=== PATIENT | female | born 1940 | race American Indian/Alaskan Native ===

== ENCOUNTER 2017-03-15 04:10 | Inpatient (IN) | payer MEDICARE ==
[2017-03-15 04:34] LABS: Basophils % (Auto) 0.6 % (0.0-1.8); Eosinophils % (Auto) 0.1 % (0.0-4.3); Hematocrit 42.1 % (30.3-42.9); Hemoglobin 13.2 gm/dl (10.1-14.3); Mean Corpuscular HGB Conc 31 % (30-34); Red Blood Count 6.34 M/mm3 (3.65-5.03); Red Cell Distribution Width 16.5 % (13.2-15.2); White Blood Count 16.2 K/mm3 (4.5-11.0)
--- NOTE | 2017-03-15 04:34 | Cat Scan Report ---
FINAL REPORT PROCEDURE: CT HEAD/BRAIN WO CON TECHNIQUE: Computerized tomography of the head was performed without contrast material. HISTORY: neuro deficits \T\lt; 6hrs or sx present upon awakening COMPARISON: No prior studies are available for comparison. FINDINGS: Skull and scalp: Normal. Paranasal sinuses: Normal. Ventricles and subarachnoid spaces: Normal. Cerebrum: There is no evidence of acute intracranial hemorrhage, hematoma, infarction, midline displacement or mass. Mild atrophy and periventricular deep white matter changes. Old lacunar infarctions of the basal ganglia are noted bilaterally.. Cerebellum and brainstem: No evidence of hemorrhage, acute infarction or mass. Vasculature: Normal. Comments: None. IMPRESSION: There is no evidence of an acute intracranial process. Mild atrophy and periventricular deep white matter changes. Old lacunar infarctions of both basal ganglia.
[2017-03-15 04:35] LABS: Mean Corpuscular Volume 66 fl (79-97)
[2017-03-15 04:36] LABS: Mean Corpuscular Hemoglobin 21 pg (28-32)
[2017-03-15 04:38] LABS: Platelet Count 206 K/mm3 (140-440)
[2017-03-15 04:43] LABS: Partial Thromboplastin Time 28.2 Sec. (24.2-36.6)
[2017-03-15 04:49] LABS: Anion Gap 21 mmol/L; BUN/Creatinine Ratio 31.25; Blood Urea Nitrogen 25 mg/dL (7-17); Calcium 8.8 mg/dL (8.4-10.2); Carbon Dioxide 26 mmol/L (22-30); Chloride 94.2 mmol/L (98-107); Glucose 192 mg/dL (65-100); Sodium 137 mmol/L (137-145)
--- NOTE | 2017-03-15 05:20 | Emergency Department Report ---
Blank Doc - Documentation Documentation: Patient presented to the ED with possible stroke alert. Apparently daughter heard a thump and when she checked on the patient she was not able to stand. EMS reports left facial droop that has improved since arrival. Patient examined by me for possible stroke alert. Patient does not have any focality at this time. Smile symmetrical, extraocular movements intact, sensation grossly intact to bilateral upper and lower extremities. No signs of arm weakness/ drift. 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 Dorsiflexion of foot equal b/ l however, patient cannot sustain antigravity movement with either lower extremity. Patient passed a swallow screen. There significant language barrier. When was lies not available. Daughter is not present.. Patient went to CAT scan and neurology was consulted via telephone. CT head was negative.
[2017-03-15] MEDS ORDERED: NACL 0.9% 1000 ML 1,000 ML IV ONE ×2 (06:19→07:30)
[2017-03-15] MEDS ORDERED: LEVAQUIN 750MG/150ML 750 MG/150 ML BAG IV ONE (06:19)
[2017-03-15] MEDS ORDERED: TYLENOL ONE (06:34)
--- NOTE | 2017-03-15 06:39 | Emergency Department Report ---
ED General Adult HPI - General Chief complaint: Neuro Symptoms/Deficit Stated complaint: CVA Time Seen by Provider: 03/15/17 06:09 Source: EMS Mode of arrival: Ambulatory Limitations: No Limitations - History of Present Illness Initial comments: 76 years old [place] female brought by EMS as a possible cord a stroke. The patient was examined initially by previous provider does not look like a TPA candidate no focalities. Patient daughter in the room now and she was able to give more history, per daughter reports patient is being having generalized weakness for the last 3 days sleeping all the time but denied any focal neurological deficit no focal weakness or numbness or tingling sensation no issues with speech. She stated that this morning she fell while she was trying to get of her bed. She also mentioned that she's been having trouble controlling her bladder for the last 3 days. Denied any fever no nausea no vomiting. -: days(s) (3 days ago) Severity scale (0 -10): 0 - Related Data Allergies Allergy/AdvReac Type Severity Reaction Status Date / Time No Known Allergies Allergy Verified 03/15/17 06:33 ED Review of Systems ROS: Stated complaint: CVA Other details as noted in HPI Comment: All other systems reviewed and negative Constitutional: denies: chills, fever ENT: denies: ear pain Respiratory: denies: cough, orthopnea, shortness of breath, SOB with exertion, SOB at rest Cardiovascular: palpitations. denies: chest pain, dyspnea on exertion Gastrointestinal: abdominal pain. denies: nausea, vomiting, diarrhea Musculoskeletal: denies: back pain Skin: denies: rash, lesions Neurological: weakness (generalized). denies: headache ED Past Medical Hx - Past Medical History Previous Medical History?: Yes Hx CVA: Yes (2016) - Social History Smoking Status: Unknown if ever smoked ED Physical Exam - General Limitations: No Limitations General appearance: alert, in no apparent distress - Head Head exam: Present: atraumatic, normocephalic - Eye Eye exam: Present: normal appearance, PERRL - ENT ENT exam: Present: normal exam, normal orophraynx, mucous membranes moist - Neck Neck exam: Present: normal inspection - Respiratory Respiratory exam: Present: normal lung sounds bilaterally. Absent: respiratory distress, wheezes, rales, rhonchi - Cardiovascular Cardiovascular Exam: Present: tachycardia - GI/Abdominal GI/Abdominal exam: Present: soft. Absent: distended, tenderness, guarding, rebound - Extremities Exam Extremities exam: Present: normal inspection - Back Exam Back exam: Present: normal inspection, full ROM. Absent: CVA tenderness (R), CVA tenderness (L) - Neurological Exam Neurological exam: Present: alert, oriented X3, CN II-XII intact, normal gait. Absent: abnormal gait, motor sensory deficit - Skin Skin exam: Present: warm, intact, normal color ED Course Vital Signs 03/15/17 03/15/17 03/15/17 04:36 05:01 05:13 Temperature Pulse Rate 115 H 112 H Respiratory 16 29 H 12 Rate Blood Pressure 162/83 Blood Pressure [Left] O2 Sat by Pulse 96 95 97 Oximetry 03/15/17 03/15/17 05:16 06:43 Temperature 98 F 102 F H Pulse Rate 109 H 76 Respiratory 12 12 Rate Blood Pressure Blood Pressure 162/83 147/71 [Left] O2 Sat by Pulse 97 Oximetry - Reevaluation(s) Reevaluation #1: 03/15/17 07:33 Patient found to have a fever over 102.8. Tylenol was given. Reevaluation #2: 03/15/17 08:[address] Morelos. I presented the patient to him, he agreed to admit the patient to his service. ED Medical Decision Making - Lab Data Result diagrams: 03/15/17 04:10 03/15/17 04:10 Critical care attestation.: If time is entered above; I have spent that time in minutes in the direct care of this critically ill patient, excluding procedure time. ED Disposition Clinical Impression: Pneumonia, UTI (urinary tract infection), Fever, Weakness Disposition: OP ADMIT IP TO THIS HOSP Is pt being admited?: Yes Condition: Stable Instructions: Bacterial Pneumonia (ED) Referrals: PRIMARY CARE, [Primary Care Provider] - 3-5 Days
[2017-03-15] MEDS ORDERED: TYLENOL PO ONE (06:42)
[2017-03-15 06:51] LABS: Bilirubin,Urine NEG (Negative); Blood,Urine MOD (Negative); Ketones,Urine NEG (Negative); Leukocyte Esterase,Urine NEG (Negative); Nitrite,Urine POS (Negative); Urobilinogen,Urine < 2.0 mg/dL (<2.0)
[2017-03-15] MEDS ORDERED: VANCOMYCIN VIAL IV ONE (08:55)
[2017-03-15] MEDS ORDERED: NACL 0.9% 1000 ML IV ONE ×3 (08:55→22:00)
[2017-03-15] MEDS ORDERED: VANCOMYCIN PHARMACY TO DOSE IV SCH (09:00)
[2017-03-15] MEDS ORDERED: SODIUM CHLORIDE FLUSH SYRINGE 10 ML IV PRN (09:01)
[2017-03-15] MEDS ORDERED: D50W (25GM) Syringe IV PRN (09:03)
--- NOTE | 2017-03-15 09:07 | History and Physical Report ---
History of Present Illness Date of examination: 03/15/17 Date of admission: 03/15/17 Chief complaint: Generalized weakness and facial drop History of present illness: Patient is a 76 years old [place] female with hx of HTN, Dm, prior stroke about a year ago, who presents to the hospital with complaints of weakness, unsteady gait and according to the daughter who presented most of the information reported a fall and EMS noted left facial droop. Patient on arrival to the ER with evaluation did not have any focality also was determined not a TPA candidate. Symptom has been ongoing, for about 3 days. Patient in the ER was noted to have focal pneumonia and also with UTI And a Temperature of 102. Constitutional: Positive fever, fatigue but no weight loss. Reported generalized weakness Skin: No rash. Eyes: No recent vision problems or eye pain. ENT: Facial droop. ENT. No congestion, ear pain, or sore throat. Endocrine: No thyroid problems. Cardiovascular: No chest pain. Respiratory: No cough, shortness of breath, congestion, or wheezing. Gastrointestinal: No abdominal pain, nausea, vomiting, or diarrhea. Genitourinary: No dysuria. Musculoskeletal: No joint swelling. Neurologic: Noted facial droop and ENT. No seizures. Hematologic: No unusual bruising or bleeding. Psychiatric: No psychiatric problems, hallucinations or depression. All other systems reviewed and otherwise negative. Past History Past Medical History: diabetes, hypertension, stroke Past Surgical History: No surgical history Social history: , lives with family, full code. denies: smoking Family history: no significant family history Medications and Allergies Allergies Allergy/AdvReac Type Severity Reaction Status Date / Time No Known Allergies Allergy Verified 03/15/17 06:33 Active Meds: Active Medications Dextrose (D50w (25gm) Syringe) 50 ml IV PRN PRN PRN Reason: Hypoglycemia Heparin Sodium (Porcine) (Heparin) 5,000 unit SUB-Q Q8HR RAJINDER Piperacillin Sod/Tazobactam Sod (Zosyn/Ns 4.5gm/100ml) 4.5 gm in 100 mls @ 200 mls/hr IV Q8HR RAJINDER PRN Reason: Protocol Insulin Aspart (Novolog) 0 units SUB-Q ACHS RAJINDER PRN Reason: Protocol Insulin Detemir (Levemir) 12 units SUB-Q QHS RAJINDER Simvastatin (Zocor) 20 mg PO QHS RAJINDER Sodium Chloride (Nacl 0.9% 1000 Ml) 2,180 ml 30 ml/kg (2180 ml) IV ONCE ONE Stop: 03/15/17 08:56 Sodium Chloride (Sodium Chloride Flush Syringe 10 Ml) 10 ml INJ PRN PRN PRN Reason: LINE FLUSH Vancomycin HCl (Vancomycin Pharmacy To Dose) 1 each IV PKCONSULT RAJINDER PRN Reason: Protocol Vancomycin HCl (Vancomycin Vial) 1,500 mg 20 mg/kg (1500 mg) IV ONCE ONE PRN Reason: Protocol Stop: 03/15/17 08:56 Exam - Physical Exam Narrative exam: VITAL SIGNS: Reviewed. GENERAL: The patient appeared well nourished and normally developed. Vital signs as documented. HEAD: No signs of head trauma. EYES: Pupils are equal. Extraocular motions intact. EARS: Hearing grossly intact. MOUTH: Oropharynx is normal. NECK: No adenopathy, no JVD. CHEST: Chest with clear breath sounds bilaterally. No wheezes, rales, or rhonchi. CARDIAC: Regular rate and rhythm. S1 and S2, without murmurs, gallops, or rubs. VASCULAR: No Edema. Peripheral pulses normal and equal in all extremities. ABDOMEN: Soft, without detectable tenderness. No sign of distention. No rebound or guarding, and no masses palpated. Bowel Sounds normal. MUSCULOSKELETAL: Good range of motion of all major joints. Extremities without clubbing, cyanosis or edema. NEUROLOGIC EXAM: Lethargic but awake and oriented x 3. No focal sensory or strength deficits. Speech normal. Follows commands. PSYCHIATRIC: Mood normal. SKIN: No rash or lesions. - Constitutional Vitals: Temp Pulse Resp BP Pulse Ox 102 F H 76 12 147/71 97 03/15/17 06:43 03/15/17 06:43 03/15/17 06:43 03/15/17 06:43 03/15/17 05:16 Results - Labs CBC & Chem 7: 03/15/17 04:10 03/15/17 04:10 Labs: Laboratory Last Values WBC 16.2 K/mm3 (4.5-11.0) H 03/15/17 04:10 RBC 6.34 M/mm3 (3.65-5.03) H 03/15/17 04:10 Hgb 13.2 gm/dl (10.1-14.3) 03/15/17 04:10 Hct 42.1 % (30.3-42.9) 03/15/17 04:10 MCV 66 fl (79-97) L 03/15/17 04:10 MCH 21 pg (28-32) L 03/15/17 04:10 MCHC 31 % (30-34) 03/15/17 04:10 RDW 16.5 % (13.2-15.2) H 03/15/17 04:10 Plt Count 206 K/mm3 (140-440) 03/15/17 04:10 Lymph % (Auto) 10.1 % (13.4-35.0) L 03/15/17 04:10 [place] % (Auto) 6.8 % (0.0-7.3) 03/15/17 04:10 Eos % (Auto) 0.1 % (0.0-4.3) 03/15/17 04:10 Baso % (Auto) 0.6 % (0.0-1.8) 03/15/17 04:10 Lymph # 1.6 K/mm3 (1.2-5.4) 03/15/17 04:10 [place] # 1.1 K/mm3 (0.0-0.8) H 03/15/17 04:10 Eos # 0.0 K/mm3 (0.0-0.4) 03/15/17 04:10 Baso # 0.1 K/mm3 (0.0-0.1) 03/15/17 04:10 Seg Neutrophils % 82.4 % (40.0-70.0) H 03/15/17 04:10 Seg Neutrophils # 13.4 K/mm3 (1.8-7.7) H 03/15/17 04:10 PT 13.1 Sec. (12.2-14.9) 03/15/17 04:10 INR 1.00 (0.87-1.13) 03/15/17 04:10 APTT 28.2 Sec. (24.2-36.6) 03/15/17 04:10 Thrombin Time 15.0 Sec. (15.1-19.6) L 03/15/17 04:10 Sodium 137 mmol/L (137-145) 03/15/17 04:10 Potassium 4.0 mmol/L (3.6-5.0) 03/15/17 04:10 Chloride 94.2 mmol/L (98-107) L 03/15/17 04:10 Carbon Dioxide 26 mmol/L (22-30) 03/15/17 04:10 Anion Gap 21 mmol/L 03/15/17 04:10 BUN 25 mg/dL (7-17) H 03/15/17 04:10 Creatinine 0.8 mg/dL (0.7-1.2) 03/15/17 04:10 Estimated GFR > 60 ml/min 03/15/17 04:10 BUN/Creatinine Ratio 31.25 % 03/15/17 04:10 Glucose 192 mg/dL (65-100) H 03/15/17 04:10 Lactic Acid 2.20 mmol/L (0.7-2.0) H* 03/15/17 06:31 Calcium 8.8 mg/dL (8.4-10.2) 03/15/17 04:10 Troponin T < 0.010 ng/mL (0.00-0.029) 03/15/17 04:10 Urine Color Yellow (Yellow) 03/15/17 06:30 Urine Turbidity Slightly-cloudy (Clear) 03/15/17 06:30 Urine pH 6.0 (5.0-7.0) 03/15/17 06:30 Ur Specific [place] 1.011 (1.003-1.030) 03/15/17 06:30 Urine Protein 30 mg/dl mg/dL (Negative) 03/15/17 06:30 Urine Glucose (UA) 150 mg/dL (Negative) 03/15/17 06:30 Urine Ketones Neg mg/dL (Negative) 03/15/17 06:30 Urine Blood Mod (Negative) 03/15/17 06:30 Urine Nitrite Pos (Negative) 03/15/17 06:30 Urine Bilirubin Neg (Negative) 03/15/17 06:30 Urine Urobilinogen < 2.0 mg/dL (<2.0) 03/15/17 06:30 Ur Leukocyte Esterase Neg (Negative) 03/15/17 06:30 Urine WBC (Auto) 9.0 /HPF (0.0-6.0) H 03/15/17 06:30 Urine RBC (Auto) 5.0 /HPF (0.0-6.0) 03/15/17 06:30 U Epithel Cells (Auto) < 1.0 /HPF (0-13.0) 03/15/17 06:30 - Imaging and Cardiology Chest x-ray: image reviewed (left lobar pneumonia) Assessment and Plan Assessment and plan: Patient is a 76 years old [place] female with hx of HTN, Dm, prior stroke about a year ago, who presents to the hospital with complaints of weakness, unsteady gait and according to the daughter who presented most of the information reported a fall and EMS noted left facial droop. Patient on arrival to the ER with evaluation did not have any focality also was determined not a TPA candidate. Symptom has been ongoing, for about 3 days. Patient in the ER was noted to have focal pneumonia and also with UTI And a Temperature of 102. Sepsis * Present on admission with evidence of tachycardia, fever, elevated WBC chest x -ray evidence of pneumonia with the urinalysis also showing UTI. Was not on sepsis protocol. Was not on empiric antibiotics Zosyn and vancomycin. Urine cultures and blood cultures. Severe Sepsis * Repeat lactate level Pneumonia * Empiric antibiotics as noted above Acute cystitis * Urine culture on empiric antibiotic coverage as noted above TIA * EMS evidence of facial droop noted at this time. We'll obtain MRI. CT brain reviewed and negative. Was not on aspirin in a.m. Allow some elevated blood pressure but control to the less than 180 systolic. * Patient has a prior history of stroke. Diabetes mellitus * Insulin sliding scale coverage with Accu-Cheks and basal insulin units at nighttime HTN * Permissive hypertension in the first 24 hours and manage appropriately. DVT and GI prophylaxis as noted. Plan of care discussed with family. Daughter will bring all home medications Advance Directives: Yes Plan of care discussed with patient/family: Yes
[2017-03-15] MEDS ORDERED: VANCOMYCIN 1,500 MG in NACL 0.9% 500 ML 500 ML IV ONE (09:15)
--- NOTE | 2017-03-15 09:27 | XRay Report ---
Single view chest: History: Chest pain. Findings: Cardiomegaly. Trachea is midline. Pulmonary venous congestion bilaterally being more pronounced lower lobes. Normal CP angles. Impression: Probable CHF.
[2017-03-15] MEDS ORDERED: ZOSYN/NS 4.5GM/100ML 4.5 GM/100 ML VIAL IV ONE ×2 (10:37→10:52)
[2017-03-15] MEDS: ZOSYN/NS 4.5GM/100ML 4.5 GM/100 ML VIAL IV SCH ×3 (11:35→22:04)
[2017-03-15] MEDS ORDERED: NOVOLOG SUB-Q ONE ×2 (11:53→11:55)
[2017-03-15] MEDS: NOVOLOG SUB-Q SCH ×3 (11:56→22:13)
--- NOTE | 2017-03-15 12:53 | Magnetic Resonance Report ---
MRI scan of brain: History: CVA. Technique: Multi-plantar, multisequence images were obtained without contrast injection. Findings: No evidence of restricted diffusion. Ventricles are normal in size and midline in location. Chronic small lacunar infarct right and left basal ganglia. No evidence of acute ischemia, hemorrhage or mass. No extra-axial fluid collection. Periventricular and subcortical areas of hyperintensity without restricted diffusion. Normal brainstem and cerebellum. Impression: No acute intracranial abnormality. Chronic lacunar infarct right and left basal ganglia. Small vessel ischemic changes bilaterally.
[2017-03-15] MEDS: HEPARIN SUB-Q SCH ×2 (18:52→22:04)
[2017-03-15] MEDS ORDERED: LEVEMIR SUB-Q SCH (22:00)
[2017-03-15] MEDS: ZOCOR PO SCH (22:03)
[2017-03-15] MEDS: LEVEMIR SUB-Q SCH (22:08)
[2017-03-16 05:51] LABS: Mean Corpuscular HGB Conc 30 % (30-34); Platelet Count 175 K/mm3 (140-440); Red Blood Count 5.49 M/mm3 (3.65-5.03); White Blood Count 9.1 K/mm3 (4.5-11.0)
[2017-03-16 05:58] LABS: Anion Gap 17 mmol/L; BUN/Creatinine Ratio 21.66; Blood Urea Nitrogen 13 mg/dL (7-17); Carbon Dioxide 23 mmol/L (22-30); Chloride 105.7 mmol/L (98-107); Glucose 91 mg/dL (65-100); Potassium 3.4 mmol/L (3.6-5.0); Sodium 142 mmol/L (137-145)
[2017-03-16] MEDS: HEPARIN SUB-Q SCH ×3 (06:07→21:48)
[2017-03-16] MEDS: ZOSYN/NS 4.5GM/100ML 4.5 GM/100 ML VIAL IV SCH ×3 (06:07→21:46)
[2017-03-16 06:32] LABS: Hematocrit 36.5 % (30.3-42.9); Hemoglobin 10.9 gm/dl (10.1-14.3)
[2017-03-16 06:33] LABS: Mean Corpuscular Hemoglobin 20 pg (28-32); Mean Corpuscular Volume 67 fl (79-97)
--- NOTE | 2017-03-16 07:24 | Admit Criteria Form ---
Admission Criteria Documentation: SEVERE SEPSIS Clinical Indications for Admission to Inpatient Care (Place 'X' for any and all applicable criteria): Hospital admission is needed for appropriate care of the patient because of ANY ONE of the following: [X]I. Hemodynamic instability indicated by ANY ONE of the following(1)(2)(3)( 4)(5): [X]a. Vital sign abnormality not readily corrected by appropriate treatment within 12 to 24 hours indicated by ANY ONE of the following: [X]i) Tachycardia that persists despite appropriate treatment []ii) Hypotension that persists despite appropriate treatment []iii) Orthostatic vital sign changes that persist despite appropriate treatment [X]b. Vital sign abnormality that is severe indicated by ANY ONE of the following: [X]i. Inadequate perfusion indicated by ANY ONE of the following: [X]1) Lactic acidosis (greater than 2 mmol/L) []2) New abnormal capillary refill (greater than 3 seconds) []3) Reduced urine output []4) New altered mental status []5) Myocardial Ischemia []ii. Mean arterial pressure [A] less than 60 mm Hg []iii. Mean arterial pressure[A] less than 70 mm Hg after 30 minutes of appropriate treatment (eg, fluid resuscitation) []iv. Sustained heart rate greater than 120 beats per minute in adult []v. IV inotropic or vasopressor medication required to maintain adequate blood pressure or perfusion []II. Systemic or infectious condition causing severe symptoms or findings not responsive to emergency or observation care treatment (as appropriate) indicated by ANY ONE of the following: []a. Cardiac arrhythmias of immediate concern(1)(2)(3) []b. Severe endocrine disorder (eg, thyrotoxicosis, adrenal insufficiency)(4)(5) []c. Seizures (eg, new or recurrent)(6) []d. New-onset end organ failure or dysfunction as indicated by ANY ONE of the following: []i. Acute unexplained hypoxemia (eg, not from lung infection or chronic disease)(7)(8)(9) []ii. Acute renal failure as indicated by new onset of ANY ONE of the following(10)(11)(12)(13)(14): []1) 3-fold rise in serum creatinine from baseline []2) Serum creatinine greater than 4 mg/dL (354 micromoles/L) with acute rise greater than 0.5 mg/dL (44.2 micromoles/L) []3) Reduction of more than 75% in estimated glomerular filtration rate from baseline. []4) Estimated glomerular filtration rate less than 35 mL/min/1.73m2 ( 0.59 mL/sec/1.73m2) in child younger than 18 years. []5) Cessation of urine output indicated by ALL of the following: []A. Adequate volume status []B. Inadequate urine output as indicated by ANY ONE of the following: []a. Urine output less than 0.3 mL/kg/hr for 24 hours []b. Anuria (urine output less than 0.1 mL/kg/hr) for 12 hours []iii. Acute mental status changes(15) []iv. Acute hepatic failure (eg, plasma bilirubin greater than 4 mg/ dL (68 micromoles/L), new INR greater than 2.0)(16)(17) []e. Unmanageable nausea and vomiting(18) []f. New-onset or uncontrolled central diabetes insipidus(19)(20) []g. Clinically significant dehydration(18)(21) []h. Hypoglycemia(22) []i. Acidosis (pH less than 7.35) or alkalosis (pH greater than 7.45)( 22)(23) []j. Toxic drug level that indicates need for specific monitoring or treatment(24)(25) []k. Severe electrolyte abnormalities indicated by ALL of the following( 1)(2)(3): []i. Electrolytes and associated findings are not as expected for patient baseline or acceptable treatment effects. []ii. Severe abnormalities indicated by ANY ONE of the following: []1) Sodium less than 130 mEq/L (mmol/L) (new) []2) Sodium less than 135 mEq/L (mmol/L) with ANY ONE of the following: []A. Uncorrectable (to near normal or chronic baseline) after trial of outpatient and emergency treatment []B. Altered mental status []C. Seizures []D. Severe medical etiology requiring inpatient management (eg , heart failure, hypovolemia) []3) Sodium greater than 155 mEq/L (mmol/L) []4) Sodium greater than 150 mEq/L (mmol/L) with ANY ONE of the following: []A. Uncorrectable (to near normal or chronic baseline) with outpatient and emergency treatment []B. Altered mental status []C. Seizures []D. Severe medical etiology (eg, hypovolemia, diabetes insipidus) []5) Potassium less than 2.5 mEq/L (mmol/L) despite outpatient and emergency treatment []6) Potassium less than 3 mEq/L (mmol/L) with ANY ONE of the following : []A. Weakness []B. Cardiac abnormality (eg, arrhythmia, conduction disturbance ) []C. Cardiac ischemia []D. Ileus []E. Ongoing medical cause requiring inpatient management (eg, acute renal wasting or SIADH) []F. Other severe symptoms []7) Potassium greater than 6.5 mEq/L (mmol/L) []8) Potassium greater than 5 mEq/L (mmol/L) with ANY ONE of the following: []A. Uncorrectable (to near normal or chronic baseline) with outpatient and emergency treatment []B. Severe ECG findings[A] []C. Acute worsening of renal failure (creatinine greater than 2.5 mg/dL (221 micromoles/L) or significant elevation for age and size) []D. Severe weakness []E. Severe medical etiology (eg, hemolysis, infection, drug overdose) []9) Calcium less than 7 mg/dL (1.75 mmol/L) despite outpatient and emergency treatment(5) []10) Calcium less than 8 mg/dL (2 mmol/L) with significant symptoms or findings (eg, altered mental status, muscle spasms, seizures, breathing difficulty, cardiac abnormality (eg, arrhythmia or conduction disturbance))(5) []11) Calcium greater than 14 mg/dL (3.5 mmol/L)(5) []12) Calcium greater than 12 mg/dL (3 mmol/L) with ANY ONE of the following(5): []A. Uncorrectable (to near normal or chronic baseline) with outpatient and emergency treatment []B. Significant dehydration or hypovolemia as indicated by ALL of the following(3)(6)(7): []a. Not resolved with initial treatments []b. Clinically significant dehydration as indicated by ANY ONE of the following: [](1) Vomiting refractory to outpatient treatment (ie, precluding oral rehydration) [](2) Inability to drink [](3) Hypernatremia or other electrolyte abnormality unable to be corrected with outpatient and emergency treatment [](4) Failure to remain hydrated with outpatient therapy [](5) Reduced urine output [](6) Hypotension [](7) Serious cause for dehydration requiring acute hospitalization ( eg, bowel obstruction, increased intracranial pressure, infectious cause) [](8) Child with ANY ONE of the following(8): [](i) Severe abdominal tenderness [](ii) Adequate care not available at home [](iii) Severe dehydration (greater than 9% loss of body weight) []C. Significant symptoms or findings (eg, altered mental status , cardiac abnormality (eg, arrhythmia, conduction disturbance), malignant etiology requiring inpatient treatment) []13) Phosphorus less than 1 mg/dL (0.32 mmol/L) []14) Phosphorus less than 1.5 mg/dL (0.48 mmol/L) with ANY ONE of the following: []A. Patient unresponsive to outpatient and emergency treatment []B. Significant symptoms or findings (eg, weakness, altered mental status, breathing difficulty, seizures, rhabdomyolysis) []15) Phosphorus greater than 10 mg/dL (3.2 mmol/L) []16) Phosphorus greater than 4.5 mg/dL (1.45 mmol/L) (new) with ANY ONE of the following: []A. Severe medical etiology (eg, crush injury, acute renal failure) []B. Associated hypocalcemia with significant findings (eg, neurologic symptoms, altered mental status, muscle spasms, seizures, breathing difficulty, cardiac abnormality (eg, arrhythmia, conduction disturbance)) []16) Magnesium less than 1 mg/dL (0.41 mmol/L) []17) Magnesium less than 1.5 mg/dL (0.62 mmol/L) with ANY ONE of the following: []A. Patient unresponsive to outpatient and emergency treatment []B. Associated hypocalcemia with significant findings (eg, altered mental status, muscle spasms, seizures, breathing difficulty, cardiac abnormality (eg, arrhythmia, conduction disturbance)) []C. Associated hypokalemia (potassium less than 3 mEq/L (mmol/L )) with risk of arrhythmia []18) Magnesium greater than 4 mEq/L (2 mmol/L) []19) Magnesium greater than 2.5 mEq/L (1.25 mmol/L) with significant symptoms or findings (eg, weakness, altered mental status, cardiac abnormality (eg, arrhythmia, conduction disturbance), breathing difficulty, severe medical etiology (eg, renal failure, hypovolemia)) []20) Uric acid greater than 20 mg/dL (1190 micromoles/L)(9) []21) Uric acid greater than 8 mg/dL (476 micromoles/L) with significant symptoms or findings of tumor lysis syndrome (eg, creatinine greater than 1.5 times upper limit of normal, cardiac abnormality (eg , arrhythmia, conduction disturbance), seizure)(9) []III. High fever or other high-risk infection situation as indicated by ANY ONE of the following(26)(27)(28): []a. Outpatient and observation care antimicrobial treatment unavailable, not effective, or not appropriate []b. Documented bacteremia []c. Temperature greater than 104.9 degrees F (40.5 degrees C) (oral) []d. Temperature greater than 103.1 degrees F (39.5 degrees C) (oral) or less than 96.8 degrees F (36 degrees C) (rectal) that does not respond to emergency treatment and observation care []IV. High-risk febrile neutropenia[A] as indicated by ANY ONE of the following(29)(30)(31)(32): []a. Profound neutropenia[B] anticipated to extend for more than 7 days []b. Hemodynamic instability []c. Hypoxemia []d. Tachypnea []e. Altered mental status []f. New-onset abdominal pain []g. New-onset vomiting or diarrhea []h. Oral or gastrointestinal mucositis that interferes with swallowing or causes severe diarrhea []i. Focal infection (eg, cellulitis, pneumonia, central line or catheter infection, perirectal abscess) []j. Renal insufficiency (eg, GFR of less than 30 mL/min/1.73m2 (0.5 mL/sec /1.73m2)). []k. Severe liver dysfunction (transaminase levels greater than 5 times normal) []l. Platelet count less than 50,000/mm3 (50 x109/L)(33) []m. Leukemia or lymphoma induction therapy []n. Leukemia not in complete remission or with evidence of disease progression []o. Bone marrow transplant patient []p. Alemtuzumab being used for therapy []q. [employer] Association for Supportive Care in Cancer (MASCC) Risk Index score of less than 21[C](33)(35). []V. Isolation required (eg, tuberculosis that requires isolation, Ebola infection)[D](36)(37)(38)(39)(40) []. Gangrene that requires treatment beyond emergency or observation level care(41)(42) []VII. Antitoxin administration and ongoing observation required (eg, tetanus, botulism)(43)(44) []. Suspected infection with rapid progression or severe symptoms as indicated by ANY ONE of the following(45): []a. Streptococcal or staphylococcal toxic shock(46) []b. Diphtheria(47) []c. Hantavirus(48) []d. Severe acute respiratory syndrome(8)(49) []e. Anthrax(50) []f. Ebola[D](36)(37)(38) []g. Necrotizing soft tissue infection(41)(42) []h. Plague(50) []i. Other suspected infection that requires care beyond emergency or observation level care []VII. Severe adverse drug or systemic toxin reaction as indicated by ANY ONE of the following(24): []a. Serotonin syndrome(51)(52) []b. Neuroleptic malignant syndrome(51)(52) []c. Cholinergic syndrome with severe symptoms (eg, bronchorrhea, weakness , mental status changes, seizures)(53) []d. Anticholinergic syndrome []e. Sympathetic syndrome with severe symptoms (eg, seizures, mental status changes, cardiac dysrhythmias) []f. Other severe adverse drug or systemic toxin reaction that remains after emergency or observation level care (as appropriate) []VIII. Allergic reaction with severe symptoms (not responsive to emergency or observation care treatment as appropriate), including ANY ONE of the following(54): []a. Airway edema (pharyngeal, epiglottic, or laryngeal edema) []b. Stridor []c. Respiratory failure []d. Bronchospasm []e. Hypotension []IX. Environmental emergency (not responsive to emergency or observation care treatment as appropriate) as indicated by ANY ONE of the following(55)(56): []a. Hyperthermia []b. Heat stroke []c. Heat exhaustion []d. Hypothermia (temperature less than 95 degrees F (35 degrees C) rectal) (57) []e. Electrocution(58) []X. Complications of transplanted organ (ie, not covered elsewhere)[E] indicated by ANY ONE of the following(59): []a. Acute graft rejection (or graft vs. host disease)[F] requiring inpatient management (eg, intravenous immunosuppression)(60)(61)(62)( 63) []b. Acute failure of transplanted organ necessitating inpatient care (eg, cannot be managed in other setting) []c. Infection requiring inpatient management (eg, Hemodynamic instability, need for intravenous antimicrobial treatment)(64)(65) []d. Other complication of transplanted organ requiring inpatient management []XI. Systemic or Infectious Condition condition, symptom, or finding for which emergency and observation care have failed or are not considered appropriate. See General Criteria: Observation Care, General Admission Criteria or Pediatric General Admission Criteria guideline as appropriate. (Contents from SEVERE SEPSIS and SYSTEMIC OR INFECTIOUS CONDITION clinical indications for admission to inpatient care have been integrated in this form) The original [facility] content created by [facility] has been revised. The portions of the content which have been revised are identified through the use of italic text or in bold and [facility] has neither reviewed nor approved the modified material. All other unmodified content is copyright [facility]. Please see references footnoted in the original [facility] edition 2016 Admission Criteria Met: Yes
--- NOTE | 2017-03-16 08:23 | Progress Note ---
Assessment and Plan Assessment and plan: Patient is a 76 years old [place]ian female with hx of HTN, Dm, prior stroke about a year ago, who presents to the hospital with complaints of weakness, unsteady gait and according to the daughter who presented most of the information reported a fall and EMS noted left facial droop. Patient on arrival to the ER with evaluation did not have any focality also was determined not a TPA candidate. Symptom has been ongoing, for about 3 days. Patient in the ER was noted to have focal pneumonia and also with UTI And a Temperature of 102. Sepsis * Present on admission with evidence of tachycardia, fever, elevated WBC chest x -ray evidence of pneumonia with the urinalysis also showing UTI. Was not on sepsis protocol. Continue empiric antibiotics Zosyn and vancomycin. Urine cultures and blood cultures. * Follow cultures, no growth till date Severe Sepsis * Repeat lactate level Pneumonia * Possible GNR * Empiric antibiotics as noted above Acute cystitis * Urine culture on empiric antibiotic coverage as noted above TIA * EMS evidence of facial droop noted at this time. Not present at this time. MRI was negative except for noted chronic lacunar infarct CT brain reviewed and negative. We'll start on aspirin daily. Control blood pressure today.. * Patient has a prior history of stroke. Diabetes mellitus * Insulin sliding scale coverage with Accu-Cheks and basal insulin units at nighttime HTN * Permissive hypertension in the first 24 hours and manage appropriately. * Start on Norvasc till we get home meds. Requested again. Hypokalemia * Replace Constipation * lactulose PRN DVT and GI prophylaxis as noted. Plan of care discussed with family. Discussed with Nursing staff plan of care. Daughter will bring all home medications History Interval history: Patient seen and examined this morning reports improvement no fever noted but still generalized weakness. Hospitalist Physical - Physical exam Narrative exam: VITAL SIGNS: Reviewed. GENERAL: The patient appeared well nourished and normally developed. Vital signs as documented. HEAD: No signs of head trauma. EYES: Pupils are equal. Extraocular motions intact. EARS: Hearing grossly intact. MOUTH: Oropharynx is normal. NECK: No adenopathy, no JVD. CHEST: Chest with clear breath sounds bilaterally. No wheezes, rales, or rhonchi. CARDIAC: Regular rate and rhythm. S1 and S2, without murmurs, gallops, or rubs. VASCULAR: No Edema. Peripheral pulses normal and equal in all extremities. ABDOMEN: Soft, without detectable tenderness. No sign of distention. No rebound or guarding, and no masses palpated. Bowel Sounds normal. MUSCULOSKELETAL: Good range of motion of all major joints. Extremities without clubbing, cyanosis or edema. NEUROLOGIC EXAM: improving but still with some lethargy but awake and oriented x 3. No focal sensory or strength deficits. Speech normal. Follows commands. PSYCHIATRIC: Mood normal. SKIN: No rash or lesions. - Constitutional Vitals: Temp Pulse Resp BP Pulse Ox 99.3 F 77 18 162/72 95 03/16/17 07:50 03/16/17 07:50 03/16/17 07:50 03/16/17 07:50 03/16/17 07:50 Results - Labs CBC & Chem 7: 03/16/17 04:36 03/16/17 04:36 Labs: Laboratory Last Values WBC 9.1 K/mm3 (4.5-11.0) 03/16/17 04:36 RBC 5.49 M/mm3 (3.65-5.03) H 03/16/17 04:36 Hgb 10.9 gm/dl (10.1-14.3) 03/16/17 04:36 Hct 36.5 % (30.3-42.9) 03/16/17 04:36 MCV 67 fl (79-97) L 03/16/17 04:36 MCH 20 pg (28-32) L 03/16/17 04:36 MCHC 30 % (30-34) 03/16/17 04:36 RDW 16.0 % (13.2-15.2) H 03/16/17 04:36 Plt Count 175 K/mm3 (140-440) 03/16/17 04:36 Lymph % (Auto) 10.1 % (13.4-35.0) L 03/15/17 04:10 [place] % (Auto) 6.8 % (0.0-7.3) 03/15/17 04:10 Eos % (Auto) 0.1 % (0.0-4.3) 03/15/17 04:10 Baso % (Auto) 0.6 % (0.0-1.8) 03/15/17 04:10 Lymph # 1.6 K/mm3 (1.2-5.4) 03/15/17 04:10 [place] # 1.1 K/mm3 (0.0-0.8) H 03/15/17 04:10 Eos # 0.0 K/mm3 (0.0-0.4) 03/15/17 04:10 Baso # 0.1 K/mm3 (0.0-0.1) 03/15/17 04:10 Seg Neutrophils % 82.4 % (40.0-70.0) H 03/15/17 04:10 Seg Neutrophils # 13.4 K/mm3 (1.8-7.7) H 03/15/17 04:10 PT 13.1 Sec. (12.2-14.9) 03/15/17 04:10 INR 1.00 (0.87-1.13) 03/15/17 04:10 APTT 28.2 Sec. (24.2-36.6) 03/15/17 04:10 Thrombin Time 15.0 Sec. (15.1-19.6) L 03/15/17 04:10 Sodium 142 mmol/L (137-145) 03/16/17 04:36 Potassium 3.4 mmol/L (3.6-5.0) L 03/16/17 04:36 Chloride 105.7 mmol/L (98-107) 03/16/17 04:36 Carbon Dioxide 23 mmol/L (22-30) 03/16/17 04:36 Anion Gap 17 mmol/L 03/16/17 04:36 BUN 13 mg/dL (7-17) 03/16/17 04:36 Creatinine 0.6 mg/dL (0.7-1.2) L 03/16/17 04:36 Estimated GFR > 60 ml/min 03/16/17 04:36 BUN/Creatinine Ratio 21.66 % 03/16/17 04:36 Glucose 91 mg/dL (65-100) 03/16/17 04:36 POC Glucose 198 (70-105) H 03/15/17 21:20 Lactic Acid 2.10 mmol/L (0.7-2.0) H* 03/15/17 14:12 Calcium 8.0 mg/dL (8.4-10.2) L 03/16/17 04:36 Troponin T < 0.010 ng/mL (0.00-0.029) 03/15/17 04:10 Triglycerides 101 mg/dL (2-149) 03/16/17 04:36 Cholesterol 156 mg/dL (50-199) 03/16/17 04:36 LDL Cholesterol Direct 93 mg/dL (50-130) 03/16/17 04:36 HDL Cholesterol 43 mg/dL (40-59) 03/16/17 04:36 Cholesterol/HDL Ratio 3.62 % 03/16/17 04:36 Urine Color Yellow (Yellow) 03/15/17 06:30 Urine Turbidity Slightly-cloudy (Clear) 03/15/17 06:30 Urine pH 6.0 (5.0-7.0) 03/15/17 06:30 Ur Specific [place] 1.011 (1.003-1.030) 03/15/17 06:30 Urine Protein 30 mg/dl mg/dL (Negative) 03/15/17 06:30 Urine Glucose (UA) 150 mg/dL (Negative) 03/15/17 06:30 Urine Ketones Neg mg/dL (Negative) 03/15/17 06:30 Urine Blood Mod (Negative) 03/15/17 06:30 Urine Nitrite Pos (Negative) 03/15/17 06:30 Urine Bilirubin Neg (Negative) 03/15/17 06:30 Urine Urobilinogen < 2.0 mg/dL (<2.0) 03/15/17 06:30 Ur Leukocyte Esterase Neg (Negative) 03/15/17 06:30 Urine WBC (Auto) 9.0 /HPF (0.0-6.0) H 03/15/17 06:30 Urine RBC (Auto) 5.0 /HPF (0.0-6.0) 03/15/17 06:30 U Epithel Cells (Auto) < 1.0 /HPF (0-13.0) 03/15/17 06:30 Blood Type B POSITIVE 03/15/17 09:20 Antibody Screen Negative 03/15/17 09:20 - Imaging and Cardiology MRI - head: image reviewed (acute stroke but chronic lacunar infarct noted)
[2017-03-16] MEDS ORDERED: K-DUR PO ONE ×2 (09:00→12:00)
[2017-03-16] MEDS ORDERED: CEPHULAC PO SCH (09:00)
[2017-03-16] MEDS: NOVOLOG SUB-Q SCH ×4 (09:11→22:00)
[2017-03-16] MEDS ORDERED: VANCOMYCIN/NS 1 GM/250 ML 1 GM/250 ML BAG IV SCH (10:00)
[2017-03-16] MEDS: CEPHULAC PO SCH ×2 (11:24→18:04)
[2017-03-16] MEDS: NORVASC PO SCH (11:25)
[2017-03-16] MEDS ORDERED: VANCOMYCIN 1,250 MG in NACL 0.9% 250ML 250 ML IV SCH (18:00)
[2017-03-16] MEDS: ZOCOR PO SCH (21:48)
[2017-03-16] MEDS: NACL 0.9% 1000 ML 1,000 ML IV SCH (21:49)
[2017-03-16] MEDS: LEVEMIR SUB-Q SCH (22:01)
[2017-03-17] MEDS: NACL 0.9% 1000 ML 1,000 ML IV SCH (04:48)
[2017-03-17] MEDS: ZOSYN/NS 4.5GM/100ML 4.5 GM/100 ML VIAL IV SCH ×3 (05:07→23:42)
[2017-03-17] MEDS: HEPARIN SUB-Q SCH ×3 (05:08→23:42)
[2017-03-17 06:41] LABS: Hematocrit 35.2 % (30.3-42.9); Mean Corpuscular HGB Conc 31 % (30-34); Platelet Count 176 K/mm3 (140-440); Red Blood Count 5.24 M/mm3 (3.65-5.03); Red Cell Distribution Width 16.2 % (13.2-15.2); White Blood Count 6.7 K/mm3 (4.5-11.0)
[2017-03-17 06:53] LABS: Mean Corpuscular Hemoglobin 21 pg (28-32); Mean Corpuscular Volume 67 fl (79-97)
[2017-03-17 06:58] LABS: Anion Gap 17 mmol/L; BUN/Creatinine Ratio 17.14; Blood Urea Nitrogen 12 mg/dL (7-17); Carbon Dioxide 19 mmol/L (22-30); Chloride 110.5 mmol/L (98-107); Glucose 69 mg/dL (65-100); Potassium 3.6 mmol/L (3.6-5.0); Sodium 143 mmol/L (137-145)
--- NOTE | 2017-03-17 07:28 | Progress Note ---
Assessment and Plan Assessment and plan: Patient is a 76 years old Afghan female with hx of HTN, Dm, prior stroke about a year ago, who presents to the hospital with complaints of weakness, unsteady gait and according to the daughter who presented most of the information reported a fall and EMS noted left facial droop. Patient on arrival to the ER with evaluation did not have any focality also was determined not a TPA candidate. Symptom has been ongoing, for about 3 days. Patient in the ER was noted to have focal pneumonia and also with UTI And a Temperature of 102. Sepsis * Present on admission with evidence of tachycardia, fever, elevated WBC chest x -ray evidence of pneumonia with the urinalysis also showing UTI. Was not on sepsis protocol. Continue empiric antibiotics Zosyn and vancomycin. Urine cultures and blood cultures- GNR. * Await Echo and repeat Blood cultures. Severe Sepsis * Repeat lactate level Pneumonia secondary to GNR * Empiric antibiotics as noted above * Repeat cultures pending * Descalate to zosyn and stop Vancomycin. Acute cystitis * Urine culture on empiric antibiotic coverage as noted above TIA * EMS evidence of facial droop noted at this time. Not present at this time. MRI was negative except for noted chronic lacunar infarct CT brain reviewed and negative. We'll start on aspirin daily. Control blood pressure today.. * Patient has a prior history of stroke. Diabetes mellitus * Increase lantus to 15 units and decrease SSL to low dose. Insulin sliding scale coverage with Accu-Cheks and basal insulin units at nighttime HTN * Continue on Norvasc till we get home meds. Requested again. Hypokalemia * Replace Constipation * lactulose PRN Metabolic acidosis * start sodium bicarb. x 2 days. DVT and GI prophylaxis as noted. Plan of care discussed with family. Discussed with Nursing staff plan of care. Daughter will bring all home medications History Interval history: Patient seen and examined this morning reports improvement no fever noted, weakness improving Hospitalist Physical - Physical exam Narrative exam: VITAL SIGNS: Reviewed. GENERAL: The patient appeared well nourished and normally developed. Vital signs as documented. HEAD: No signs of head trauma. EYES: Pupils are equal. Extraocular motions intact. EARS: Hearing grossly intact. MOUTH: Oropharynx is normal. NECK: No adenopathy, no JVD. CHEST: Chest with clear breath sounds bilaterally. No wheezes, rales, or rhonchi. CARDIAC: Regular rate and rhythm. S1 and S2, without murmurs, gallops, or rubs. VASCULAR: No Edema. Peripheral pulses normal and equal in all extremities. ABDOMEN: Soft, without detectable tenderness. No sign of distention. No rebound or guarding, and no masses palpated. Bowel Sounds normal. MUSCULOSKELETAL: Good range of motion of all major joints. Extremities without clubbing, cyanosis or edema. NEUROLOGIC EXAM: improving but still with some lethargy but awake and oriented x 3. No focal sensory or strength deficits. Speech normal. Follows commands. PSYCHIATRIC: Mood normal. SKIN: No rash or lesions. - Constitutional Vitals: Temp Pulse Resp BP Pulse Ox 98.8 F 94 H 20 151/75 95 03/17/17 05:59 03/16/17 19:58 03/17/17 05:58 03/17/17 05:58 03/16/17 19:58 Results - Labs CBC & Chem 7: 03/17/17 07:07 03/17/17 07:07 Labs: Laboratory Last Values WBC 6.7 K/mm3 (4.5-11.0) 03/17/17 05:27 RBC 5.24 M/mm3 (3.65-5.03) H 03/17/17 05:27 Hgb 11.0 gm/dl (10.1-14.3) 03/17/17 05:27 Hct 35.2 % (30.3-42.9) 03/17/17 05:27 MCV 67 fl (79-97) L 03/17/17 05:27 MCH 21 pg (28-32) L 03/17/17 05:27 MCHC 31 % (30-34) 03/17/17 05:27 RDW 16.2 % (13.2-15.2) H 03/17/17 05:27 Plt Count 176 K/mm3 (140-440) 03/17/17 05:27 Lymph % (Auto) 10.1 % (13.4-35.0) L 03/15/17 04:10 Payne % (Auto) 6.8 % (0.0-7.3) 03/15/17 04:10 Eos % (Auto) 0.1 % (0.0-4.3) 03/15/17 04:10 Baso % (Auto) 0.6 % (0.0-1.8) 03/15/17 04:10 Lymph # 1.6 K/mm3 (1.2-5.4) 03/15/17 04:10 Payne # 1.1 K/mm3 (0.0-0.8) H 03/15/17 04:10 Eos # 0.0 K/mm3 (0.0-0.4) 03/15/17 04:10 Baso # 0.1 K/mm3 (0.0-0.1) 03/15/17 04:10 Seg Neutrophils % 82.4 % (40.0-70.0) H 03/15/17 04:10 Seg Neutrophils # 13.4 K/mm3 (1.8-7.7) H 03/15/17 04:10 PT 13.1 Sec. (12.2-14.9) 03/15/17 04:10 INR 1.00 (0.87-1.13) 03/15/17 04:10 APTT 28.2 Sec. (24.2-36.6) 03/15/17 04:10 Thrombin Time 15.0 Sec. (15.1-19.6) L 03/15/17 04:10 Sodium 143 mmol/L (137-145) 03/17/17 05:27 Potassium 3.6 mmol/L (3.6-5.0) 03/17/17 05:27 Chloride 110.5 mmol/L (98-107) H 03/17/17 05:27 Carbon Dioxide 19 mmol/L (22-30) L 03/17/17 05:27 Anion Gap 17 mmol/L 03/17/17 05:27 BUN 12 mg/dL (7-17) 03/17/17 05:27 Creatinine 0.7 mg/dL (0.7-1.2) 03/17/17 05:27 Estimated GFR > 60 ml/min 03/17/17 05:27 BUN/Creatinine Ratio 17.14 % 03/17/17 05:27 Glucose 69 mg/dL (65-100) 03/17/17 05:27 POC Glucose 72 (70-105) 03/17/17 06:17 Lactic Acid 0.90 mmol/L (0.7-2.0) 03/16/17 08:36 Calcium 8.0 mg/dL (8.4-10.2) L 03/17/17 05:27 Troponin T < 0.010 ng/mL (0.00-0.029) 03/15/17 04:10 Triglycerides 101 mg/dL (2-149) 03/16/17 04:36 Cholesterol 156 mg/dL (50-199) 03/16/17 04:36 LDL Cholesterol Direct 93 mg/dL (50-130) 03/16/17 04:36 HDL Cholesterol 43 mg/dL (40-59) 03/16/17 04:36 Cholesterol/HDL Ratio 3.62 % 03/16/17 04:36 Urine Color Yellow (Yellow) 03/15/17 06:30 Urine Turbidity Slightly-cloudy (Clear) 03/15/17 06:30 Urine pH 6.0 (5.0-7.0) 03/15/17 06:30 Ur Specific [place] 1.011 (1.003-1.030) 03/15/17 06:30 Urine Protein 30 mg/dl mg/dL (Negative) 03/15/17 06:30 Urine Glucose (UA) 150 mg/dL (Negative) 03/15/17 06:30 Urine Ketones Neg mg/dL (Negative) 03/15/17 06:30 Urine Blood Mod (Negative) 03/15/17 06:30 Urine Nitrite Pos (Negative) 03/15/17 06:30 Urine Bilirubin Neg (Negative) 03/15/17 06:30 Urine Urobilinogen < 2.0 mg/dL (<2.0) 03/15/17 06:30 Ur Leukocyte Esterase Neg (Negative) 03/15/17 06:30 Urine WBC (Auto) 9.0 /HPF (0.0-6.0) H 03/15/17 06:30 Urine RBC (Auto) 5.0 /HPF (0.0-6.0) 03/15/17 06:30 U Epithel Cells (Auto) < 1.0 /HPF (0-13.0) 03/15/17 06:30 Blood Type B POSITIVE 03/15/17 09:20 Antibody Screen Negative 03/15/17 09:20
[2017-03-17] MEDS: NOVOLOG SUB-Q SCH ×4 (07:41→23:43)
[2017-03-17 07:55] LABS: Hematocrit 34.5 % (30.3-42.9); Hemoglobin 10.9 gm/dl (10.1-14.3); Mean Corpuscular HGB Conc 32 % (30-34); Platelet Count 173 K/mm3 (140-440); Red Cell Distribution Width 16.1 % (13.2-15.2); White Blood Count 6.8 K/mm3 (4.5-11.0)
[2017-03-17 07:56] LABS: Mean Corpuscular Hemoglobin 21 pg (28-32); Mean Corpuscular Volume 66 fl (79-97)
[2017-03-17 08:03] LABS: Anion Gap 19 mmol/L; BUN/Creatinine Ratio 17.14; Blood Urea Nitrogen 12 mg/dL (7-17); Calcium 8.2 mg/dL (8.4-10.2); Carbon Dioxide 18 mmol/L (22-30); Chloride 110.6 mmol/L (98-107); Glucose 75 mg/dL (65-100); Potassium 3.6 mmol/L (3.6-5.0); Sodium 144 mmol/L (137-145)
[2017-03-17] MEDS: NORVASC PO SCH (10:32)
[2017-03-17] MEDS: SODIUM BICARBONATE PO SCH ×2 (19:31→23:43)
[2017-03-17] MEDS ORDERED: LEVEMIR SUB-Q SCH (22:00)
[2017-03-17] MEDS: ZOCOR PO SCH (23:43)
[2017-03-18] MEDS: HEPARIN SUB-Q SCH (05:39)
[2017-03-18] MEDS: ZOSYN/NS 4.5GM/100ML 4.5 GM/100 ML VIAL IV SCH (05:39)
[2017-03-18 05:52] LABS: Hematocrit 33.8 % (30.3-42.9); Hemoglobin 10.6 gm/dl (10.1-14.3); Mean Corpuscular HGB Conc 31 % (30-34); Platelet Count 205 K/mm3 (140-440); Red Blood Count 5.18 M/mm3 (3.65-5.03); Red Cell Distribution Width 16.3 % (13.2-15.2); White Blood Count 5.9 K/mm3 (4.5-11.0)
[2017-03-18 05:53] LABS: Mean Corpuscular Hemoglobin 20 pg (28-32); Mean Corpuscular Volume 65 fl (79-97)
[2017-03-18 06:10] LABS: BUN/Creatinine Ratio 16.66; Blood Urea Nitrogen 10 mg/dL (7-17); Calcium 8.1 mg/dL (8.4-10.2); Carbon Dioxide 22 mmol/L (22-30); Glucose 89 mg/dL (65-100)
[2017-03-18 06:11] LABS: Anion Gap 17 mmol/L; Chloride 109.2 mmol/L (98-107); Potassium 3.1 mmol/L (3.6-5.0); Sodium 145 mmol/L (137-145)
[2017-03-18] MEDS: NOVOLOG SUB-Q SCH ×2 (08:06→14:41)
--- NOTE | 2017-03-18 09:09 | Discharge Summary ---
Providers - Providers Date of Admission: 03/15/17 08:56 Attending physician: SARAH HIGH MD 03/15/17 09:01 Occupational Therapy Evaluate and Treat [CONS] Routine Comment: Reason For Exam: Neuro deficits Physical Therapy Evaluation and Treat [CONS] Routine Comment: Reason For Exam: Neuro deficits 03/15/17 09:05 Consult to Dietitian/Nutrition [CONS] Routine Physician Instructions: Reason For Exam: Reason for Consult: Diet education Primary care physician: RIGHT OF WAY MAN Hospitalization Reason for admission: sepsis Condition: Stable Hospital course: Patient is a 76 years old [place] female with hx of HTN, Dm, prior stroke about a year ago, who presents to the hospital with complaints of weakness, unsteady gait and according to the daughter who presented most of the information reported a fall and EMS noted left facial droop. Patient on arrival to the ER with evaluation did not have any focality also was determined not a TPA candidate. Symptom has been ongoing, for about 3 days. Patient in the ER was noted to have focal pneumonia and also with UTI And a Temperature of 102. Sepsis * Present on admission with evidence of tachycardia, fever, elevated WBC chest x -ray evidence of pneumonia with the urinalysis also showing UTI. Was not on sepsis protocol. Continue empiric antibiotics Zosyn and vancomycin. Urine cultures and blood cultures- GNR- ECOLI sensitive to levaquin and pateint transitioned to PO levaqin to complete total of 10 days abx. * Echo did not reveal any vegetation * Repeat Blood cultures remained negative Severe Sepsis * Repeat lactate level was normal Pneumonia secondary to GNR-ecoli * Empiric antibiotics as noted above was used Acute cystitis * treated as noted manda TIA * EMS evidence of facial droop but this was not noted on admission. Not present at this time. MRI was negative except for noted chronic lacunar infarct CT brain reviewed and negative. We'll start on aspirin daily. Control blood pressure today.. * Patient has a prior history of stroke. Diabetes mellitus * Increased lantus to 15 units and decrease SSL to low dose. but was readjusted downwards prior to discharge. family to monitor. HTN * Continue on Norvasc Hypokalemia * Replace Constipation * lactulose PRN Metabolic acidosis * treated with sodium bicarb. x 2 days. Plan of care discussed with family. follow up was discussed in detail Disposition: DC-01 TO HOME OR SELFCARE Time spent for discharge: 35 mins Core Measure Documentation - Palliative Care Palliative Care/ Comfort Measures: Not Applicable - Core Measures Any of the following diagnoses?: none - VTE Discharge Requirements Deep Vein Thrombosis/Pulmonary Embolism Present on Admission: No Exam - Physical Exam Narrative exam: VITAL SIGNS: Reviewed. GENERAL: The patient appeared well nourished and normally developed. Vital signs as documented. HEAD: No signs of head trauma. EYES: Pupils are equal. Extraocular motions intact. EARS: Hearing grossly intact. MOUTH: Oropharynx is normal. NECK: No adenopathy, no JVD. CHEST: Chest with clear breath sounds bilaterally. No wheezes, rales, or rhonchi. CARDIAC: Regular rate and rhythm. S1 and S2, without murmurs, gallops, or rubs. VASCULAR: No Edema. Peripheral pulses normal and equal in all extremities. ABDOMEN: Soft, without detectable tenderness. No sign of distention. No rebound or guarding, and no masses palpated. Bowel Sounds normal. MUSCULOSKELETAL: Good range of motion of all major joints. Extremities without clubbing, cyanosis or edema. NEUROLOGIC EXAM: awake and oriented x 3. No focal sensory or strength deficits. Speech normal. Follows commands. PSYCHIATRIC: Mood normal. SKIN: No rash or lesions. - Constitutional Vitals: Temp Pulse Resp BP Pulse Ox 98.2 F 82 20 145/84 97 03/17/17 21:10 03/17/17 21:10 03/17/17 21:10 03/17/17 21:10 03/17/17 21:10 Plan Activity: advance as tolerated, fall precautions Diet: low cholesterol, diabetic Special Instructions: record daily weights, record daily BP diary, record blood sugar diary Additional Instructions: continue home meds Follow up with: PRIMARY CARE, [Primary Care Provider] - 3-5 Days Prescriptions: Simvastatin [Zocor TAB] 20 mg PO QHS #30 tablet Aspirin [Aspirin BABY CHEW TAB] 81 mg PO QDAY #30 tab.chew Levofloxacin [Levaquin] 750 mg PO QDAY #7 tablet Sodium Bicarbonate 650 mg PO BID #6 tablet
[2017-03-18 10:10] VITALS: BP 156/79
[2017-03-18] MEDS: NORVASC PO SCH (10:10)
[2017-03-18] MEDS: SODIUM BICARBONATE PO SCH (10:10)
== END 2017-03-18 14:50 | disposition home or self-care (01) | DRG 871 ==
LOC: ED 04:10 → 3A 08:56
PROVIDERS: ADMIT Internal Medicine; ATTEND Internal Medicine
DX: A41.9 Sepsis, unspecified organism (principal); J15.6 Pneumonia due to other Gram-negative bacteria; G45.9 Transient cerebral ischemic attack, unspecified; E87.2 Acidosis; N30.00 Acute cystitis without hematuria; I10 Essential (primary) hypertension; E87.6 Hypokalemia; K59.00 Constipation, unspecified; R65.20 Severe sepsis without septic shock; E11.9 Type 2 diabetes mellitus without complications
CPT/HCPCS: 36415; 70450; 70551; 71010; 80048; 80061; 81001; 82140; 82962; 84484; 85025; 85027; 85610; 85670; 85730; 86850; 86900; 86901; 87040; 87076; 87086; 87186; 87205; 93005; 93010; 93306; 93880; 96361; 96365; 96366; G8987-GO; G8988-GO; G8989-GO; J1644; J1815; J1818; J1956; J2543; J3370; J7030; J7040; J7050